=== PATIENT | female | born 1990 | race Caucasian/White ===

== ENCOUNTER 2023-01-18 15:48 | Emergency (ER) | payer MEDICAID ==
[2023-01-18] MEDS ORDERED: Acetaminophen 500 MG TAB ONE (16:16)
[2023-01-18] MEDS ORDERED: Ibuprofen 200 MG TAB ONE (16:16)
[2023-01-18 17:12] LABS: SARS-CoV-2 NAA Rapid Test Not Detected (NotDetected)
== END 2023-01-18 17:30 | disposition home or self-care (01) ==
LOC: ERS 15:48
DX: B34.9 Viral infection, unspecified (principal); F17.210 Nicotine dependence, cigarettes, uncomplicated; Z20.822 Contact with and (suspected) exposure to COVID-19
CPT/HCPCS: 87081; 87430; 99283